=== PATIENT | male | born 1975 | race Caucasian/White ===

== ENCOUNTER 2022-02-09 08:58 | Emergency (ER) | payer MEDICAID ==
[~2022-02-09] VITALS: Ht 170.2 cm; Wt 74.8 kg
--- NOTE | 2022-02-09 09:00 | NUR ---
BIB SELF C/O EPIGASTRIC PAIN X 3 DAYS. TO ER BED 10, HOOKED TO MONITOR, CHANGED TO HOSP GOWN, WARM BLANKET PROVIDED. PATIENT AAO x 4. BREATHING EVEN AND UNLABORED. AWAITING MD HAYWOOD
--- NOTE | 2022-02-09 09:33 | NUR ---
DR STUART AT BEDSIDE
[2022-02-09] MEDS ORDERED: LIDOCAINE VISCOUS 2% UD 15 ML UDC ONE (09:52)
[2022-02-09] MEDS ORDERED: MAG HYDROX/AL HYDROX/SIMETH 30 ML UDC ONE (09:52)
[2022-02-09] MEDS ORDERED: MAG HYDROX/AL HYDROX/SIMETH 30 ML UDC PO ONE (10:00)
[2022-02-09] MEDS ORDERED: LIDOCAINE VISCOUS 2% UD 15 ML UDC MM ONE (10:00)
[2022-02-09 10:06] LABS: BASOPHILS % (AUTO) 0.2 % (0.0-2.0); EOSINOPHILS % (AUTO) 1.2 % (0.0-6.0); HEMATOCRIT 44 % (39-51); HEMOGLOBIN 14.9 g/dL (13.5-17.5); LYMPHOCYTES # (AUTO) 1.5 K/uL (0.8-4.8); LYMPHOCYTES % (AUTO) 31.3 % (20.0-44.0); MEAN CORPUSCULAR HGB CONC 34 g/dl (31.0-36.0); MEAN CORPUSCULAR VOLUME 88 fL (80-96); MONOCYTES # (AUTO) 0.3 K/uL (0.1-1.30); MONOCYTES % (AUTO) 6.4 % (2.0-12.0); NEUTROPHILS % (AUTO) 60.9 % (43.0-81.0); PLATELET COUNT (AUTO) 213 K/uL (150-450); RED BLOOD CELL COUNT(AUTO) 5.04 MIL/uL (4.5-6.0); WHITE BLOOD COUNT (AUTO) 4.9 K/uL (4.3-11.0)
[2022-02-09 10:39] LABS: ALANINE AMINOTRANSFERASE 51 U/L (12-78); ALBUMIN 4.1 g/dL (3.4-5.0); ALKALINE PHOSPHATASE 104 U/L (46-116); ASPARTATE AMINOTRANSFERASE 20 U/L (15-37); BILIRUBIN,DIRECT 0.1 mg/dL (0.0-0.2); BILIRUBIN,TOTAL 0.5 mg/dL (0.2-1.0); CALCIUM, SERUM 9.1 mg/dL (8.5-10.1); CARBON DIOXIDE 29 mmol/L (21-32); CHLORIDE 105 mmol/L (98-107); CREATININE 0.7 mg/dL (0.6-1.3); GLUCOSE 107 mg/dL (74-106); LIPASE 79 U/L (73-393); POTASSIUM 4.1 mmol/L (3.5-5.1); SODIUM SERUM 139 mmol/L (136-145); TOTAL PROTEIN, SERUM 7.3 g/dL (6.4-8.2); UREA NITROGEN, BLOOD 15 mg/dL (7-18)
[2022-02-09] MEDS ORDERED: FAMO-131 PO (13:33)
--- NOTE | 2022-02-09 13:46 | NUR ---
Patient discharged to home in stable condition. Written and verbal after care instructions given. Patient verbalizes understanding of instruction.
[2022-02-09 13:47] VITALS: BP 132/79
[2022-02-09 14:15] LABS: BILIRUBIN,URINE NEGATIVE (NEGATIVE); COLOR,URINE YELLOW (YELLOW); LEUKOCYTE ESTERASE ,URINE NEGATIVE (NEGATIVE); NITRITE, URINE NEGATIVE (NEGATIVE); PH,URINE 8.5 (5.0-8.0); PROTEIN,URINE NEGATIVE (NEGATIVE); UGLUCOSE NEGATIVE (NEGATIVE); UROBILINOGEN,URINE 0.2 EU/dL (0.2)
== END 2022-02-09 13:48 | disposition home or self-care (01) ==
LOC: ER 09:00
DX: R10.13 Epigastric pain (principal); I10 Essential (primary) hypertension; E78.5 Hyperlipidemia, unspecified; Z79.899 Other long term (current) drug therapy
CPT/HCPCS: 36415; 80048-TC; 80076-TC; 83690-TC; 84484-TC; 85025-TC

== ENCOUNTER 2022-03-22 13:38 | Emergency (ER) | payer MEDICAID ==
[~2022-03-22] VITALS: Ht 165.1 cm; Wt 74.8 kg
[~2022-03-22 13:38] MED LIST: FAMO-131 PO
[2022-03-22] MEDS ORDERED: IBUPROFEN 600 MG TABLET PO ONE (14:30)
--- NOTE | 2022-03-22 14:30 | NUR ---
46 yrs male c/o abdominale pain fo 4 days
[2022-03-22] MEDS ORDERED: IBUPROFEN 600 MG TABLET ONE (14:45)
--- NOTE | 2022-03-22 15:00 | NUR ---
seen by provider ELIOT gutierrez with pt about plan of care and d/c instraction
[2022-03-22] MEDS ORDERED: OXYC-128 PO (15:05)
[2022-03-22] MEDS ORDERED: IBUP-1957 PO (15:05)
--- NOTE | 2022-03-22 15:16 | NUR ---
D/C INSTRACTION GIVEN TO PT FULLY AND VERBLIZED UNDERSTOOD D/C HOME WITH rx and fallow up care
[2022-03-22 15:24] VITALS: BP 120/70
== END 2022-03-22 15:24 | disposition home or self-care (01) ==
LOC: ER 13:43
DX: S22.31XA Fracture of one rib, right side, initial encounter for closed fracture (principal); I10 Essential (primary) hypertension; Z79.899 Other long term (current) drug therapy; V00-Y99 External causes of morbidity; Y93.89 Activity, other specified; Y92.89 Other specified places as the place of occurrence of the external cause; Y99.8 Other external cause status
CPT/HCPCS: 71100-TC

== ENCOUNTER 2024-01-17 11:05 | Emergency (ER) | payer MEDICAID, OTHER ==
[~2024-01-17] VITALS: Ht 160 cm; Wt 74.8 kg
[~2024-01-17 11:05] MED LIST changes: +IBUP-1957 PO; +OXYC-128 PO
[2024-01-17] MEDS ORDERED: KETOROLAC TROMETHAMINE INJ 60 MG/2 ML VIAL IM ONE (11:32)
[2024-01-17] MEDS ORDERED: METHOCARBAMOL (500MG) 500 MG TABLET ONE (11:33)
[2024-01-17] MEDS: KETOROLAC TROMETHAMINE INJ 60 MG/2 ML VIAL IM ONE (11:45)
[2024-01-17] MEDS: METHOCARBAMOL (500MG) 500 MG TABLET PO ONE (11:45)
[2024-01-17] MEDS ORDERED: METH-647 PO (12:04)
[2024-01-17] MEDS ORDERED: IBUP-1953 PO (12:04)
[2024-01-17 12:17] VITALS: BP 154/79; TEMP 98.5; O2SAT 99
== END 2024-01-17 12:17 | disposition home or self-care (01) ==
LOC: ER 11:05
DX: G44.209 Tension-type headache, unspecified, not intractable (principal); I10 Essential (primary) hypertension; Z79.899 Other long term (current) drug therapy
CPT/HCPCS: 99285; 70450; 96372; J1885